=== PATIENT | male | born 1990 | race Caucasian/White ===

== ENCOUNTER 2020-07-03 17:53 | Emergency (ER) | payer OTHER ==
[~2020-07-03] VITALS: Ht 180.3 cm; Wt 86.2 kg
[2020-07-03 20:04] LABS: ABSOLUTE NEUTROPHILS 8.4 thou/uL (1.4-8.2); BASOPHILS 0.5 % (0.0-2.0); EOSINOPHILS 0.8 % (0.0-3.0); HEMATOCRIT 45.1 % (42.0-52.0); HEMOGLOBIN 15.2 gm/dL (14.0-18.0); MCH 29.9 pg (26.0-34.0); MCHC 33.7 g/dL (28.0-37.0); MCV 88.7 fL (80.0-100.0); PLATELET COUNT 224 thou/uL (150-400); POLYS 80.7 % (36.0-66.0); RBC 5.08 mil/uL (4.50-6.00); RDW 12.8 % (10.5-14.5); WBC 10.4 thou/uL (4.0-11.0)
[2020-07-03 20:05] LABS: URINE BILIRUBIN NEGATIVE (Negative); URINE BLOOD NEGATIVE (Negative); URINE CLARITY CLEAR; URINE COLOR YELLOW; URINE GLUCOSE-RANDOM* NEGATIVE (Negative); URINE KETONES NEGATIVE (Negative); URINE LEUKOCYTES-REFLEX NEGATIVE (Negative); URINE NITRITE-REFLEX NEGATIVE (Negative); URINE PROTEIN (DIPSTICK) NEGATIVE (Negative); URINE UROBILINOGEN 0.2 E.U./dl (0.2-1.0)
[2020-07-03 20:13] LABS: CALCIUM 9.2 mg/dL (8.5-10.1); CREATININE 1.2 mg/dL (0.7-1.3)
[2020-07-03 20:19] LABS: ALBUMIN 4.6 g/dL (3.4-5.0); TOTAL BILIRUBIN 0.4 mg/dL (0.2-1.0)
[2020-07-03 21:00] VITALS: BP 147/81
[2020-07-03] MEDS ORDERED: CARAFATE 1 GM TA1 G1 PO (21:48)
[2020-07-03] MEDS ORDERED: OMEPRAZOLE40 MG PO (21:48)
[2020-07-03] MEDS ORDERED: ZYRTEC10 M2 PO (22:02)
== END 2020-07-03 22:15 | disposition home or self-care (01) ==
LOC: ER 17:53
PROVIDERS: Physician Assistant
DX: K29.70 Gastritis, unspecified, without bleeding (principal); R13.10 Dysphagia, unspecified; R09.82 Postnasal drip